=== PATIENT | male | born 1980 | race Caucasian/White ===

== ENCOUNTER 2016-06-15 13:49 | Day surgery (SDC) | payer BC ==
[~2016-06-15 13:49] MED LIST: DEXAMETHASONE SOD PHOSPHATE 10 MG/ML 1 ML VIAL IV ONE; DEXAMETHASONE SOD PHOSPHATE 4 MG/ML 1 ML VIAL IV ONE; FAMOTIDINE 20 MG/2 ML VIAL IV ONE; LACTATED RINGERS 1,000 ML IV SCH; ONDANSETRON 4 MG/2 ML VIAL IVP ONE; Pre Op ABX Message 1 EACH MISC MISCELLANE ONE
[2016-06-15] MEDS: OXYMETAZOLINE 0.05% NASL SPRAY 15 ML NASAL STA ×5 (14:49→15:14)
[2016-06-15] MEDS ORDERED: LIDOCAINE 1% 20 ML VIAL (10MG/ML) FOR IV START INTRADERMA ONE (14:53)
[2016-06-15] MEDS ORDERED: ceFAZolin 1,000 MG VIAL ONE ×2 (15:29)
[2016-06-15] MEDS ORDERED: MIDAZOLAM 2 MG/2 ML VIAL ONE ×2 (15:29→16:14)
[2016-06-15] MEDS ORDERED: SODIUM CHLORIDE 0.9% 100 ML BAG ONE (15:29)
[2016-06-15] MEDS ORDERED: KETOROLAC 30 MG/ML 1 ML VIAL ONE (15:29)
[2016-06-15] MEDS ORDERED: LIDOCAINE 1% INJ 10MG/ML (20 ML MDV) ONE ×2 (15:29→16:14)
[2016-06-15] MEDS ORDERED: fentaNYL (PF) 50 MCG/ML 2 ML AMP ONE ×2 (15:29→16:14)
[2016-06-15] MEDS ORDERED: SODIUM CHLORIDE 0.9% 1,000 ML BAG ONE (15:29)
[2016-06-15] MEDS ORDERED: PROPOFOL 10 MG/ML 20 ML VIAL IV ONE ×2 (15:29→16:14)
[2016-06-15] MEDS ORDERED: SUCCINYLCHOLINE CHLORIDE 100 MG/5 ML SYR IV ONE ×2 (15:29→16:14)
[2016-06-15] MEDS ORDERED: GLYCOPYRROLATE 0.2 MG/ML 2 ML VIAL ONE (16:14)
[2016-06-15] MEDS ORDERED: NEOSTIGMINE 1 MG/ML 10 ML VIAL ONE (16:14)
[2016-06-15] MEDS ORDERED: DEXAMETHASONE SOD PHOS (MDV) 100 MG/10 ML VIAL ONE (16:14)
[2016-06-15] MEDS ORDERED: ONDANSETRON 4 MG/2 ML VIAL ONE (16:14)
[2016-06-15] MEDS ORDERED: ROCURONIUM BROMIDE 10 MG/ML 10 ML VIAL IV ONE (16:14)
[2016-06-15] MEDS ORDERED: LIDOCAINE 1%-EPI 1:100,000 20 ML VIAL SQ ONE ×2 (16:41)
[2016-06-15] MEDS ORDERED: BACITRACIN 500 UNIT/GM OINT 28.4 GM TUBE TOPICAL ONE (16:53)
[2016-06-15] MEDS ORDERED: LACTATED RINGERS 1,000 ML IV ONE (17:30)
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
[2016-06-15] MEDS: HYDROmorphone 1 MG/ML 1 ML SYRINGE IVP PRN ×4 (17:44→18:10)
[2016-06-15 17:45] VITALS: TEMP 98.2
[2016-06-15] MEDS: MEPERIDINE 50 MG/ML SYRINGE IVP ONE ×2 (18:16→18:22)
[2016-06-15 18:38] VITALS: RESP 18
[2016-06-15 19:08] VITALS: BP 110/78; PULSE 68
== END 2016-06-15 19:13 | disposition home or self-care (01) ==
LOC: OR 13:49
PROVIDERS: ATTEND Otolaryngology
DX: S02.42XA Fracture of alveolus of maxilla, initial encounter for closed fracture (principal); S02.2XXA Fracture of nasal bones, initial encounter for closed fracture; F90.9 Attention-deficit hyperactivity disorder, unspecified type; F12.90 Cannabis use, unspecified, uncomplicated; J34.2 Deviated nasal septum; Z72.0 Tobacco use; V86.52XA Driver of snowmobile injured in nontraffic accident, initial encounter; Y93.29 Activity, other involving ice and snow; Z79.899 Other long term (current) drug therapy; Z79.2 Long term (current) use of antibiotics
CPT/HCPCS: 30420; 88300; J2250; J2710; J2175; J2405; J0690; J2001; J3010; J1885; J1170; J1100; J0330; J2704